=== PATIENT | female | born 1960 | race Caucasian/White ===

== ENCOUNTER → 2016-12-13 | Outpatient (CLI) | payer OTHER | LOC: BHSO 09:07 | DX: F33.42 Major depressive disorder, recurrent, in full remission (principal) ==

== ENCOUNTER → 2017-03-07 | Outpatient (CLI) | payer OTHER | LOC: BHSO 09:28 | DX: F33.42 Major depressive disorder, recurrent, in full remission (principal) ==

== ENCOUNTER → 2017-07-08 | Outpatient (CLI) | payer OTHER | LOC: BHSO 08:46 | DX: F41.1 Generalized anxiety disorder (principal) ==

== ENCOUNTER → 2018-01-23 | Outpatient (CLI) | payer OTHER | LOC: BHSO 10:04 | DX: F33.41 Major depressive disorder, recurrent, in partial remission (principal) | CPT/HCPCS: G0463 ==

== ENCOUNTER → 2018-07-04 | Outpatient (CLI) | payer OTHER | LOC: BHSO 09:27 | DX: F41.1 Generalized anxiety disorder (principal) | CPT/HCPCS: G0463 ==

== ENCOUNTER → 2018-09-04 | Outpatient (CLI) | payer OTHER | LOC: BHSO 10:47 | DX: F41.1 Generalized anxiety disorder (principal) | CPT/HCPCS: G0463 ==

== ENCOUNTER → 2018-12-04 | Outpatient (CLI) | payer OTHER | LOC: BHSO 10:02 | DX: F41.1 Generalized anxiety disorder (principal) | CPT/HCPCS: G0463 ==

== ENCOUNTER → 2019-06-04 | Outpatient (CLI) | payer OTHER | LOC: BHSO 08:47 | DX: F31.81 Bipolar II disorder (principal) | CPT/HCPCS: G0463 ==

== ENCOUNTER → 2019-11-23 | Outpatient (CLI) | payer OTHER | LOC: BHSO 14:03 | DX: F33.42 Major depressive disorder, recurrent, in full remission (principal) | CPT/HCPCS: G0463 ==

== ENCOUNTER → 2020-05-05 | Outpatient (CLI) | payer OTHER | LOC: BHSO 10:26 | DX: F33.42 Major depressive disorder, recurrent, in full remission (principal) | CPT/HCPCS: G0463 ==

== ENCOUNTER 2020-11-28 08:40 | Day surgery (SDC) | payer OTHER ==
[~2020-11-28] VITALS: Wt 73.9 kg
[2020-11-28] MEDS ORDERED: VITAMIND3 5000 PO (08:48)
[2020-11-28] MEDS ORDERED: PRISTIQ100 MG PO (08:48)
[2020-11-28 09:13] VITALS: BP 123/81; PULSE 70; TEMP 97.3
[2020-11-28 10:10] VITALS: BP 104/67; PULSE 67
--- NOTE | 2020-11-28 10:10 | NUR ---
PATIENT TRANSPORTED PER CART FROM ENDO SUITE 3 TO BAY 9 ACCOMPANIED BY ENDO RN. PATIENT AMBULATED WITH 1 ASSIST FROM CART TO CHAIR WITH STEADY GAIT. MONITORS REAPPLIED. VSS. PATIENT TALKS WITH STAFF. PATIENT DENIES DISCOMFORT.
[2020-11-28 10:15] VITALS: BP 110/61; PULSE 65
--- NOTE | 2020-11-28 10:15 | NUR ---
VSS. PATIENT GIVEN APPLESAUCE AND COFFEE. PATIENT DENIES DISCOMFORT AND NAUSEA. PATIENT TXT HER DAUGHTER WITH UPDATE.
[2020-11-28 10:38] VITALS: BP 117/76; PULSE 69; TEMP 97.8
[2020-11-28 10:45] VITALS: BP 125/69; PULSE 59
--- NOTE | 2020-11-28 10:50 | NUR ---
VSS ON ROOM AIR. PATIENT ALERT AND TALKING. IV DC'D WITH CATHETER TIP INTACT. PRESSURE AND BANDAGE APPLIED. 1055 DISCHARGE INSTRUCTIONS GIVEN VERBAL AND DISCHARGE PACKET GIVEN TO PATIENT. QUESTIONS ANSWERED AND PATIENT VOICED UNDERSTANDING. PATIENT CHANGES INTO STREET CLOTHES. 1100 PATIENT DISCHARGED PER WHEEL CHAIR ACCOMPANIED BY ENDO RN TO PRIVATE VECHILE. PATIENT'S DAUGHTER DRIVING.
== END 2020-11-28 11:00 | disposition home or self-care (01) ==
LOC: SDCO 08:40
DX: Z12.11 Encounter for screening for malignant neoplasm of colon (principal); K62.89 Other specified diseases of anus and rectum; F32.9 Major depressive disorder, single episode, unspecified; F41.9 Anxiety disorder, unspecified; Z20.822 Contact with and (suspected) exposure to COVID-19
CPT/HCPCS: J2704; J7120

== ENCOUNTER → 2021-12-07 | Outpatient (CLI) | payer OTHER ==
[~2021-12-07] MED LIST: PRISTIQ100 MG PO; VITAMIND3 5000 PO
== END ==
LOC: MC.RAD 10:30
DX: Z12.31 Encounter for screening mammogram for malignant neoplasm of breast (principal)